=== PATIENT | female | born 1965 | race African-American/Black ===

== ENCOUNTER 2019-01-16 03:59 | Observation (INO) ==
[2019-01-16] MEDS ORDERED: METHYLPREDNISOLONE SOD SUCC/PF 125 MG/2 ML VIAL IV ONE (04:05)
[2019-01-16] MEDS ORDERED: ACETAMINOPHEN 500 MG TABLET PO ONE (04:18)
--- NOTE | 2019-01-16 04:23 | ERNOTE ---
Dyspnea - Date Date of Service: 01/16/19 - General Presenting Symptoms: shortness of breath, difficulty of breathing, wheezing Time Seen by Provider: 01/16/19 04:03 Source: patient, EMS Exam Limitations: no limitations - Immun/Allergies/Home Medications Immunizations: IMMUNIZATION HX Immunizations Up to Date Yes History of Influenza Vaccine Yes Hx Pneumococcal Vaccination No Allergies/Adverse Reactions: Allergies No Known Allergies Allergy (Verified 12/13/18 09:18) Home Medications: HOME MEDICATIONS amlodipine 10 mg tablet 10 mg PO DAILY 11/09/18 [Last Taken Unknown] aspirin 81 mg tablet,delayed release 81 mg PO DAILY 11/09/18 [Last Taken Unknown] atorvastatin 80 mg tablet 80 mg PO DAILY 11/09/18 [Last Taken Unknown] hydralazine 50 mg tablet 50 mg PO TID 11/09/18 [Last Taken Unknown] lisinopril 20 mg tablet 20 mg PO DAILY 11/09/18 [Last Taken Unknown] metoprolol succinate ER 50 mg tablet,extended release 24 hr 50 mg PO DAILY 11/09/18 [Last Taken Unknown] Baclofen 10 mg PO QID 12/13/18 [Last Taken Unknown] Cephalexin Monohydrate [Keflex] 500 mg PO QID #40 cap 12/13/18 [Last Taken Unknown] traMADol HCL [Ultram] 50 mg PO QID PRN #20 tab 12/13/18 [Last Taken Unknown] - History of Present Illness Narrative: patient presents per ems with c/o dyspnea, has been sick for last several days with fever and cough, hx of copd Severity: severe Treatment [employer] RO[employer]: paramedics, oxygen, albuterol, other - solumedrol Initiating event: Reports: upper resp illness Frequency of episodes: Reports: frequent episodes Modifying Factors - (Improves): Reports: albuterol, oxygen, other - bipap Modifying Factors (Worsens): Reports: nothing Associated Symptoms-Dyspnea: Reports: fever/chills, cough, wheezing, lightheadedness Prior Treatment: Reports: recently seen, treated by physician, previous episodes Review of Systems - Review of Systems Constitutional: Present: See HPI EYE: Present: no symptoms reported ENT: Present: no symptoms reported Respiratory: Present: See HPI, shortness of breath, orthopnea, wheezing Cardiology: Present: no symptoms reported Gastrointestinal/Abdominal: Present: no symptoms reported Genitourinary: Present: no symptoms reported Musculoskeletal: Present: no symptoms reported Skin: Present: no symptoms reported Neurological: Present: other - previous cva with right sided paralysis Endocrine: Present: no symptoms reported Hematologic/Lymphatic: Present: no symptoms reported Psych: Present: no symptoms reported All Other Systems: All systems neg except as marked Medical History (Last Reviewed 01/16/19 @ 04:01 by Tara Driver RN) Hyperlipidemia (Chronic) COPD (chronic obstructive pulmonary disease) (Chronic) 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 Smoking Status Never smoker Have you smoked in the past 12 No months Do you dip or chew tobacco No Alcohol Use none Drug Use none No Social History Section defined Physical Exam - Physical Exam General Appearance: Present: severe distress, anxious, obese Head Exam: Present: normal inspection, no evidence of injury Eye Exam: Normal inspection: bilateral, PERRL: bilateral, EOMI: bilateral Ears, Nose, Throat: Present: normal ENT inspection, normal pharynx Neck: Present: normal inspection, nontender Respiratory: Present: respiratory distress Cardiovascular/Chest: Present: regular rate, rhythm, no murmur, normal peripheral pulses Gastrointestinal/Abdominal: Present: normal bowel sounds, nontender, nondistended, soft, no organomegaly Back Exam: Present: normal inspection, normal range of motion, no CVA tenderness, no vertebral tenderness Extremity Exam: Present: normal except - - right sided paralysis Neurological Exam: Present: alert, oriented, normal mood/affect, no motor/sensory deficits Skin Exam: Present: normal color, warm/dry Lymphatic Exam: Present: no adenopathy Progress - Date and Time Seen: Date and Time: 01/16/19 06:02 patient improved discussed case with dr kerry klein accepts patient for admission - Results and Orders Patient's Lab Results:: I have reviewed the patient's lab results. - Vital Signs Patient's Vital Signs:: I have reviewed the patient's vital signs. Vital Signs: Vital Signs 01/16/19 04:03 01/16/19 04:12 Temperature 36.6 C Pulse Rate 113 H 106 H Respiratory Rate 32 H Blood Pressure 181/119 H O2 Sat by Pulse Oximetry 99 - EKG EKG #1 EKG: supraventricular tachycardia - X-Ray X-Ray #1 X-Ray: chest Interpretation: Interp. by ca - copd - Progress/Reassessment Chief Complaint: Dyspnea Progress:: Improved - Transfer of Care Expected Disposition: Admit Plan - Plan Plan: to admit to hospital Departure Clinical Impression: COPD (chronic obstructive pulmonary disease) - Departure Disposition: Still a patient Condition: Serious
[2019-01-16] MEDS ORDERED: hydrALAZINE HCL 20 MG/ML VIAL IV ONE (04:30)
[2019-01-16 04:32] LABS: Hematocrit 42.3 % (37.0-47.0); Hemoglobin 12.7 gm/dL (12.5-16.0); Mean Cell Volume 71.7 fl (78-100); Mean Corpuscular Hemoglobin 21.5 pg (27-31); Neutrophil # 5.2 K/mm3 (1.3-6.0); Neutrophil % 73.5 % (42-75.0); Platelet Count 139 K/mm3 (150-450); Red Cell Distribution Width 23.3 % (11.5-14.0); White Blood Count 7.1 K/mm3 (4.0-10.5)
[2019-01-16 04:55] LABS: ALT 20 U/L (19-67); AST 23 U/L (0-48); Albumin * 3.5 gm/dl (3.4-5.0); Alkaline Phosphatase * 96 U/L (50-170); Anion Gap 13.2 mmol/L (6.8-13.8); BNP * 149 pg/mL (5-205); BUN/Creatinine Ratio 14.6 (9.0-21.6); Bilirubin, Total 0.3 mg/dL (0.0-1.1); Blood Urea Nitrogen 13 mg/dL (3-23); Ca. Corrected For Albumin 8.9 mg/dL (8.4-10.2); Calcium * 8.8 mg/dL (7.9-10.9); Carbon Dioxide 26.2 mmol/L (24-32.6); Chloride 105 mmol/L (97-106); Glucose * 101 mg/dL (70-110); Potassium 3.4 mmol/L (3.4-4.6); Sodium 141 mmol/L (132-142); Total Protein 8.1 gm/dL (6.2-8.2); Troponin I Less than 0.017 ng/mL (0.00-0.10)
[2019-01-16] MEDS ORDERED: ALBUTEROL SULFATE/IPRATROPIUM 3 ML NEBU IH ONE ×2 (05:40)
[2019-01-16] MEDS ORDERED: LORazepam 2 MG/ML DISP.SYRIN IV ONE (05:40)
[2019-01-16] MEDS ORDERED: LORazepam 2 MG/ML DISP.SYRIN ONE (05:41)
[2019-01-16] MEDS ORDERED: ALBUTEROL SULFATE 2.5 MG/0.5 ML VIAL.NEB IH PRN (06:11)
[2019-01-16] MEDS ORDERED: METHYLPREDNISOLONE SOD SUCC/PF 125 MG/2 ML VIAL IV SCH (06:15)
[2019-01-16] MEDS ORDERED: ALBUTEROL SULFATE 60 PUFF INHALER IH PRN (08:52)
[2019-01-16] MEDS: BACLOFEN 10 MG TABLET PO SCH ×3 (10:00→16:52)
[2019-01-16] MEDS: ASPIRIN 81 MG TABLET.DR PO SCH (10:00)
[2019-01-16] MEDS: LISINOPRIL 20 MG TABLET PO SCH (10:00)
[2019-01-16] MEDS: METOPROLOL SUCCINATE 50 MG TABLET.SA PO SCH (10:02)
[2019-01-16] MEDS: hydrALAZINE HCL 50 MG TABLET PO SCH ×3 (10:02→16:52)
[2019-01-16] MEDS: amLODIPine BESYLATE 10 MG TABLET PO SCH (10:02)
[2019-01-16] MEDS: METHYLPREDNISOLONE SOD SUCC/PF 125 MG/2 ML VIAL IV SCH ×3 (10:03→21:21)
[2019-01-16] MEDS ORDERED: ALBUTEROL SULFATE 2.5 MG/0.5 ML VIAL.NEB IH SCH (12:15)
[2019-01-16] MEDS ORDERED: BUDESONIDE 0.5 MG/2 ML VIAL.NEB IH SCH (12:15)
--- NOTE | 2019-01-16 12:23 | HP ---
Chief Complaint - Chief Complaint Date of Service: 01/16/19 Time of Service: 08:30 Chief Complaint: dyspnea, asthma attack History of Present Illness: Kate House is a 51-year-old black female who presented to ER with marked shortness of breath. She has a history of asthma. She does not smoke but she lives with her son and his . Smoked heavily. She has a nebulizer but doesn't know where it is and doesn't have any medication for it. She is very dyspneic and tachypnea With audible wheezing on arrival in ER. She was treated there and improved some and is admitted for further treatment. She appears weak. Her her voice is weak. She is unable to complete a sentence without having to take a breath for 2. Also, she has had a previous stroke and has a partial hemiparesis. 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 Hypertension (Chronic) Onset Date: Unknown Stroke (Chronic) Onset Date: ~2014 History of echocardiogram Onset Date: ~07/2017 EF 60% Surgical History: Surgical History (Last Reviewed 01/16/19 @ 07:45 by Lakesha Augustin RN) History of gastrostomy tube placement Onset Date: ~2014 placed after her stroke removed in 06/2016 Family History: Family History (Last Reviewed 01/16/19 @ 07:45 by Lakesha Augustin RN) Other Family history non-contributory Social History: Patient Lives/Resources Home Utilized Occupation retired Preferred Language [place] Citizen Do you have any holiness or Yes: Restoration cultural preference? Smoking Status Never smoker Have you smoked in the past 12 No months Do you dip or chew tobacco No Alcohol Use none Drug Use none No Social History Section defined Review Of Systems (GEN) - Review of Systems Generalized/Overall Review: Present: Weakness. Absent: Chills, Fever EENTM: Present: No Symptoms Reported Respiratory: Present: Shortness of Breath, Wheezing Cardiac: Present: No Symptoms Reported Abdominal: Present: No Symptoms Reported Genitourinary: Present: No Symptoms Reported Musculoskeletal: Present: No Symptoms Reported Neurological: Present: Pre-existing Deficit - Due to previous stroke Skin: Present: No Symptoms Reported Endocrine: Present: No Symptoms Reported Misc: All systems neg except as marked Immunizations: IMMUNIZATION HX Immunizations Up to Date Yes History of Influenza Vaccine Yes Hx Pneumococcal Vaccination No Allergies/Adverse Reactions: Allergies Allergy/AdvReac Type Severity Reaction Status Date / Time No Known Allergies Allergy Verified 01/16/19 07:45 Home Medications: HOME MEDICATIONS amlodipine 10 mg tablet 10 mg PO DAILY 11/09/18 [Last Taken Unknown] aspirin 81 mg tablet,delayed release 81 mg PO DAILY 11/09/18 [Last Taken Unknown] atorvastatin 80 mg tablet 80 mg PO DAILY 11/09/18 [Last Taken Unknown] hydralazine 50 mg tablet 50 mg PO TID 11/09/18 [Last Taken Unknown] lisinopril 20 mg tablet 20 mg PO DAILY 11/09/18 [Last Taken Unknown] metoprolol succinate ER 50 mg tablet,extended release 24 hr 50 mg PO DAILY 11/09/18 [Last Taken Unknown] Baclofen 10 mg PO TID 12/13/18 [Last Taken Unknown] Albuterol Sulfate [Ventolin Hfa] 18 gm INHALATION QID PRN 01/16/19 [Last Taken Unknown] Exam - Exam Vital Signs: Vital Signs - Last Taken Temp 36.4 C 01/16/19 10:00 Pulse 110 H 01/16/19 10:22 Resp 24 H 01/16/19 10:22 BP 152/101 H 01/16/19 10:02 Pulse Ox 100 01/16/19 10:13 Constitutional: Present: Alert, Oriented x3, Cooperative, Well developed, Well nourished, Moderate distress ENT Exam: Present: normal ENT inspection, hearing grossly normal, pharynx normal, TMs normal Eye Exam: bilateral eye: normal inspection, PERRL, EOMI Neck: Present: non-tender, full range of motion, supple, normal inspection, trachea midline Back Exam: Present: normal inspection, no CVA tenderness, no vertebral tenderness Breasts: Present: Exam deferred, Nontender Respiratory: Present: chest non-tender, wheezing Cardiovascular/Chest: Present: normal peripheral pulses, no chest tenderness, no edema, no gallop, no JVD, no murmur, no rub, tachycardia Peripheral Pulses: carotid (R): 2+, carotid (L): 2+, radial (R): 2+, radial (L): 2+ Abdomen: Present: Normal bowel sounds, soft, nontender, nondistended, no rebound tenderness, no hepatospenomegaly, no masses /Rectal: Present: Exam deferred Extremity: Present: normal range of motion, non-tender, normal inspection, no pedal edema, no calf tenderness, normal capillary refill Skin Exam: Present: normal color, warm/dry, no cyanosis, cool/dry, diaphoresis Lymphatic: Present: no adenopathy Neurologic: Present: resp therapist II-XII nml as tested, normal cerebellar test, abnormal gait, motor weakness - R. side. Absent: sensory deficit, depressed affect, disoriented x 3 Appearance: Present: appropriate appearance, appropriate insight, neat, no memory impairment Eye contact: Present: cooperative, good eye contact, normal speech Thoughts: Present: normal thought pattern, no apparent hallucination Diagnostic Studies: Abnormal Lab Results 01/16/19 01/16/19 Range/Units 04:03 04:25 RBC 5.90 H (4.2-5.4) M/mm3 MCV 71.7 L (78-100) fl MCH 21.5 L (27-31) pg MCHC 30.0 L (32-36) g/dl RDW 23.3 H (11.5-14.0) % Plt Count 139 L (150-450) K/mm3 Lymphocytes % 19.2 L (20-51) % Lymphocytes # 1.37 L (1.5-3.5) k/mm3 pO2 137.6 H (83.0-108.0) mmHg Total CO2 24.1 H (19.0-24.0) mmol/L ABG O2 Sat (Measured) 98.7 H (94.0-98.0) % Laboratory Results WBC 7.1 K/mm3 (4.0-10.5) 01/16/19 04:25 RBC 5.90 M/mm3 (4.2-5.4) H 01/16/19 04:25 Hgb 12.7 gm/dL (12.5-16.0) 01/16/19 04:25 Hct 42.3 % (37.0-47.0) 01/16/19 04:25 MCV 71.7 fl (78-100) L 01/16/19 04:25 MCH 21.5 pg (27-31) L 01/16/19 04:25 MCHC 30.0 g/dl (32-36) L 01/16/19 04:25 RDW 23.3 % (11.5-14.0) H 01/16/19 04:25 Plt Count 139 K/mm3 (150-450) L 01/16/19 04:25 Immature Gran % (Auto) 0.30 % (0.001-0.429) 01/16/19 04:25 Immature Gran # (Auto) 0.02 K/mm3 (0.000-0.0310) 01/16/19 04:25 Neutrophils % 73.5 % (42-75.0) 01/16/19 04:25 Lymphocytes % 19.2 % (20-51) L 01/16/19 04:25 Monocytes % 4.4 % (0.0-9) 01/16/19 04:25 Eosinophils % 2.0 % (0.0-3.0) 01/16/19 04:25 Basophils % 0.6 % (0.0-1.0) 01/16/19 04:25 Nucleated RBC % 0.0 k/mm3 (0-1) 01/16/19 04:25 Neutrophils # 5.2 K/mm3 (1.3-6.0) 01/16/19 04:25 Lymphocytes # 1.37 k/mm3 (1.5-3.5) L 01/16/19 04:25 Monocytes # 0.3 k/mm3 (0.0-1.0) 01/16/19 04:25 Eosinophils # 0.1 k/mm3 (0.0-0.7) 01/16/19 04:25 Absolute Basophils 0.0 k/mm3 (0.0-0.1) 01/16/19 04:25 pCO2 38.0 mmHg (32.0-45.0) 01/16/19 04:03 pO2 137.6 mmHg (83.0-108.0) H 01/16/19 04:03 HCO3 22.9 mmol/L (21.0-28.0) 01/16/19 04:03 Total CO2 24.1 mmol/L (19.0-24.0) H 01/16/19 04:03 Base Excess -1.6 mmol/L (-2.0-3.0) 01/16/19 04:03 ABG pH 7.40 (7.35-7.45) 01/16/19 04:03 ABG O2 Sat (Measured) 98.7 % (94.0-98.0) H 01/16/19 04:03 Sodium 141 mmol/L (132-142) 01/16/19 04:25 Plasma Sodium 141 mmol/L (130-142) 01/16/19 04:25 Potassium 3.4 mmol/L (3.4-4.6) 01/16/19 04:25 Chloride 105 mmol/L (97-106) 01/16/19 04:25 Carbon Dioxide 26.2 mmol/L (24-32.6) 01/16/19 04:25 Anion Gap 13.2 mmol/L (6.8-13.8) 01/16/19 04:25 BUN 13 mg/dL (3-23) 01/16/19 04:25 Creatinine 0.89 mg/dL (0.4-1.4) 01/16/19 04:25 Est GFR (Non-Af Amer) 85 mL/min (60-130) 01/16/19 04:25 BUN/Creatinine Ratio 14.6 (9.0-21.6) 01/16/19 04:25 Random Glucose 101 mg/dL (70-110) 01/16/19 04:25 Calcium 8.8 mg/dL (7.9-10.9) 01/16/19 04:25 Calcium Adj for Albumin 8.9 mg/dL (8.4-10.2) 01/16/19 04:25 Total Bilirubin 0.3 mg/dL (0.0-1.1) 01/16/19 04:25 AST 23 U/L (0-48) 01/16/19 04:25 ALT 20 U/L (19-67) 01/16/19 04:25 Alkaline Phosphatase 96 U/L (50-170) 01/16/19 04:25 Troponin I Less than 0.017 ng/mL (0.00-0.10) 01/16/19 04:25 B-Natriuretic Peptide 149 pg/mL (5-205) 01/16/19 04:25 Total Protein 8.1 gm/dL (6.2-8.2) 01/16/19 04:25 Albumin 3.5 gm/dl (3.4-5.0) 01/16/19 04:25 Assessment/Plan - Narrative Narrative: 1. Increase respiratory therapy treatments to every 4 hours with albuterol and had Pulmicort to 2 treatments a day. 2. Evaluate for infectious etiology. 3. Up in chair for all meals. - Assessment/Plan (1) Asthma Problem: Acute Qualifiers: Asthma severity: severe Asthma persistence: persistent Asthma complication type: with acute exacerbation Qualified Code(s): J45.51 - Severe persistent asthma with (acute) exacerbation (2) COPD (chronic obstructive pulmonary disease) Problem: Chronic Qualifiers: COPD type: chronic bronchitis Chronic bronchitis type: simple Qualified Code(s): J41.0 - Simple chronic bronchitis (3) Paralysis due to acute cerebrovascular accident (CVA) Problem: Chronic (4) Hypertension Problem: Chronic Qualifiers: Hypertension type: essential hypertension Qualified Code(s): I10 - Essential (primary) hypertension
[2019-01-16] MEDS: ALBUTEROL SULFATE 2.5 MG/0.5 ML VIAL.NEB IH SCH ×3 (14:04→22:26)
[2019-01-16] MEDS: BUDESONIDE 0.5 MG/2 ML VIAL.NEB IH SCH (18:02)
[2019-01-16] MEDS: ROSUVASTATIN CALCIUM 20 MG TABLET PO SCH (21:18)
[2019-01-17] MEDS: ALBUTEROL SULFATE 2.5 MG/0.5 ML VIAL.NEB IH SCH ×6 (02:02→22:18)
[2019-01-17] MEDS: METHYLPREDNISOLONE SOD SUCC/PF 125 MG/2 ML VIAL IV SCH ×3 (04:15→17:21)
[2019-01-17] MEDS: BUDESONIDE 0.5 MG/2 ML VIAL.NEB IH SCH ×2 (06:06→19:46)
[2019-01-17] MEDS: METOPROLOL SUCCINATE 50 MG TABLET.SA PO SCH (09:01)
[2019-01-17] MEDS: LISINOPRIL 20 MG TABLET PO SCH (09:01)
[2019-01-17] MEDS: BACLOFEN 10 MG TABLET PO SCH ×3 (09:01→17:22)
[2019-01-17] MEDS: ASPIRIN 81 MG TABLET.DR PO SCH (09:01)
[2019-01-17] MEDS: hydrALAZINE HCL 50 MG TABLET PO SCH ×3 (09:02→17:22)
[2019-01-17] MEDS: amLODIPine BESYLATE 10 MG TABLET PO SCH (09:02)
[2019-01-17 09:08] LABS: Iron 56 mcg/dL (35-120); Transferrin Sat. (% Sat.) 27 % (15-55)
[2019-01-17] MEDS: ALBUTEROL SULFATE 2.5 MG/0.5 ML VIAL.NEB IH PRN ×2 (13:37→17:22)
--- NOTE | 2019-01-17 13:42 | DS ---
(1) Asthma Problem: Acute Qualifiers: Asthma severity: moderate Asthma persistence: persistent Asthma complication type: with acute exacerbation Qualified Code(s): J45.41 - Moderate persistent asthma with (acute) exacerbation (2) COPD (chronic obstructive pulmonary disease) Problem: Chronic Qualifiers: COPD type: chronic bronchitis Chronic bronchitis type: simple Qualified Code(s): J41.0 - Simple chronic bronchitis (3) Paralysis due to acute cerebrovascular accident (CVA) Problem: Chronic (4) Hypertension Problem: Chronic Qualifiers: Hypertension type: essential hypertension Qualified Code(s): I10 - Essential (primary) hypertension Description of Stay: Kate House is a 53-year-old black female who presented with severe asthma attack in the ER. He treated her with respiratory therapy and she improved some but when I saw her initially on the general medical unit she was still very tight and laboring. We gave her albuterol breathing treatments every 4 hours and antibiotics. I'll also put Pulmicort for an ICS in her breathing treatment solution twice daily. Today she still has some expiratory wheezes but she does not have any labored breathing. She is able to speak in full sentences. She feels that she is pretty much back to her baseline. She has had a previous stroke which is caused a hemiparesis of the right side. Her speech is good so it did not affect [place]'s area. She will need and requests to have home health. Indeed she could use a lot of assistance with physical therapy and occupational therapy for stroke rehabilitation. She will also need equipment and medication for inhalation treatments. She is requesting a referral to an irradiated fuel handler for an eye exam and refraction for bifocals. [id number] for home health:Kate House is a 53-year-old black female who is confined to home due to previous left hemispheric stroke that has caused a subtotal right hemiparesis. She is naturally right-handed but has adapted well from the stroke. She also has moderate to severe asthma that will require monitoring and medication management. The need for jail will be for medication education and management, diagnosis management education. The need for physical therapy will be for stroke rehabilitation and improve mobilization. She will also need assistance with bathing and and dressing. The need for occupational therapy will be for splinting of the right hand, improve range of motion and stroke rehabilitation. She will need strengthening and improved mobility. She will also need instruction on safety awareness. The need for speech therapy would be for improved swallowing and eating techniques. Procedures Performed: none Results and Findings: Pending Mircobiology Results 01/16/19 05:00 Blood Blood Culture - Preliminary NO GROWTH 24 HOURS 01/16/19 04:25 Blood Blood Culture - Preliminary NO GROWTH 24 HOURS Lab Pending Results 01/16/19 04:03: pCO2 38.0, pO2 137.6 H, HCO3 22.9, Total CO2 24.1 H, Base Excess -1.6, ABG pH 7.40, ABG O2 Sat (Measured) 98.7 H 01/16/19 04:25: WBC 7.1, RBC 5.90 H, Hgb 12.7, Hct 42.3, MCV 71.7 L, MCH 21.5 L, MCHC 30.0 L, RDW 23.3 H, Plt Count 139 L, Immature Gran % (Auto) 0.30, Immature Gran # (Auto) 0.02, Neutrophils % 73.5, Lymphocytes % 19.2 L, Monocytes % 4.4, Eosinophils % 2.0, Basophils % 0.6, Nucleated RBC % 0.0, Neutrophils # 5.2, Lymphocytes # 1.37 L, Monocytes # 0.3, Eosinophils # 0.1, Absolute Basophils 0.0 01/16/19 04:25: Sodium 141, Plasma Sodium 141, Potassium 3.4, Chloride 105, Carbon Dioxide 26.2, Anion Gap 13.2, BUN 13, Creatinine 0.89, Est GFR (Non-Af Amer) 85, BUN/Creatinine Ratio 14.6, Random Glucose 101, Calcium 8.8, Calcium Adj for Albumin 8.9, Total Bilirubin 0.3, AST 23, ALT 20, Alkaline Phosphatase 96, Troponin I Less than 0.017, B-Natriuretic Peptide 149, Total Protein 8.1, Albumin 3.5 01/17/19 08:37: Absolute Retic 0.0694, Percent Retic 1.2, Immature Retic Fraction 12.7, Retic Hgb Content 26.1 L 01/17/19 08:37: Iron 56, TIBC 207 L, Transferrin % Sat 27 01/17/19 08:37: Ferritin 118 Discharge Location: Home Disposition: [facility] Home Health Agency: [facility] Home Health Condition: Fair Face to Face Encounter completed per CMS Guidelines: Yes Discharge Activity: Activity as tolerated Discharge Diet: General/regular food Referrals: Bridger Taylor MD [Staff Physician] - Additional Patient Instructions (free text): -Please make TCM appointment unless intermediate discharge. Thank you! Jazmyne @ ext:[phone]. Having [facility] Home Health new at discharge, please call and fax discharge orders to them. Complete Home Medications List: Complete Home Medication List: amlodipine 10 mg tablet 10 mg PO DAILY 11/09/18 aspirin 81 mg tablet,delayed release 81 mg PO DAILY 11/09/18 atorvastatin 80 mg tablet 80 mg PO DAILY 11/09/18 hydralazine 50 mg tablet 50 mg PO TID 11/09/18 lisinopril 20 mg tablet 20 mg PO DAILY 11/09/18 metoprolol succinate ER 50 mg tablet,extended release 24 hr 50 mg PO DAILY 11/09/18 Baclofen 10 mg PO TID 12/13/18 Albuterol Sulfate [Ventolin Hfa] 18 gm INHALATION QID PRN 01/16/19 Albuterol Sulfate [Albuterol Sulfate 2.5 MG/0.5ML] 2.5 mg IH Q6H #100 [email or web address] 01/17/19 Albuterol Sulfate [Ventolin HFA] 18 gm INHALATION Q4H #1 inhaler 01/17/19 Budesonide [Pulmicort Respules] 0.5 mg IH BIDRT #60 vial.[email or web address] 01/17/19 Cefuroxime Axetil [Ceftin] 500 mg PO BID #20 tab 01/17/19
[2019-01-17] MEDS ORDERED: CEFUROXIME AXETIL 250 MG TABLET ONE (21:35)
[2019-01-17] MEDS: CEFUROXIME AXETIL 500 MG TABLET PO SCH (22:08)
[2019-01-17] MEDS: ROSUVASTATIN CALCIUM 20 MG TABLET PO SCH (22:08)
[2019-01-18] MEDS: ALBUTEROL SULFATE 2.5 MG/0.5 ML VIAL.NEB IH SCH ×3 (02:12→10:37)
[2019-01-18] MEDS: BUDESONIDE 0.5 MG/2 ML VIAL.NEB IH SCH (06:05)
[2019-01-18] MEDS: CEFUROXIME AXETIL 500 MG TABLET PO SCH (08:25)
[2019-01-18] MEDS: amLODIPine BESYLATE 10 MG TABLET PO SCH (08:26)
[2019-01-18] MEDS: ASPIRIN 81 MG TABLET.DR PO SCH (08:26)
[2019-01-18] MEDS: METOPROLOL SUCCINATE 50 MG TABLET.SA PO SCH (08:27)
[2019-01-18] MEDS: LISINOPRIL 20 MG TABLET PO SCH (08:29)
[2019-01-18] MEDS: BACLOFEN 10 MG TABLET PO SCH (08:29)
[2019-01-18] MEDS: hydrALAZINE HCL 50 MG TABLET PO SCH (08:29)
[2019-01-18] MEDS: ALBUTEROL SULFATE 2.5 MG/0.5 ML VIAL.NEB IH PRN (10:37)
[2019-01-18 13:46] VITALS: BP 133/76
== END 2019-01-18 15:15 | disposition home health service (06) ==
LOC: ER 03:59 → MS 06:01 → INTOOBSV 06:01 → MS 06:10
PROVIDERS: ADMIT Family Medicine; ATTEND Family Medicine
CPT/HCPCS: 36415; 36600; 71010; 71045; 80053; 82728; 82803; 83020; 83021; 83519; 83540; 83550; 83880; 84484; 85025; 85045; 87040; 93005; 94640; 94660; 94664; 94760; 96365; 96366; 96375; 97110; 97162; 97166; 97530; 97760; 99285; G0378

== ENCOUNTER 2020-02-12 00:01 | Observation (INO) ==
--- NOTE | 2020-02-12 00:28 | ERNOTE ---
Chest Pain/Cardiac HPI Time Seen by Provider: 02/12/20 00:19 Source: patient, EMS Exam Limitations: physical impairment - Patient has some dysarthria due to previous CVA Immunizations: IMMUNIZATION HX Immunizations Up to Date Yes History of Influenza Vaccine No Hx Pneumococcal Vaccination No Allergies/Adverse Reactions: Allergies No Known Allergies Allergy (Verified 02/12/20 04:30) Home Medications: HOME MEDICATIONS aspirin 81 mg tablet,delayed release 81 mg PO DAILY 11/09/18 [Last Taken Unknown] Albuterol Sulfate [Albuterol Sulfate 2.5 MG/0.5ML] 2.5 mg INHALATION Q6H #100 vial.neb 01/17/19 [Last Taken Unknown] Durable Medical Equipment See Dose Instructions .ROUTE .MEDSUPPLY #1 ea 01/24/19 [Last Taken Unknown] Durable Medical Equipment See Dose Instructions .ROUTE .MEDSUPPLY #1 ea 01/24/19 [Last Taken Unknown] diaper,brief,adult,disposable See Dose Instructions .ROUTE .MEDSUPPLY #40 ea 01/24/19 [Last Taken Unknown] electric hospital bed 0 .ROUTE .MEDSUPPLY #1 ea 01/24/19 [Last Taken Unknown] ferrous sulfate 325 mg (65 mg iron) tablet 325 mg PO DAILY #100 tab 02/28/19 [Last Taken Unknown] Nebulizer 0 .ROUTE .MEDSUPPLY #1 ea 03/30/19 [Last Taken Unknown] Acetaminophen [Tylenol] 650 mg PO Q6H PRN 08/03/19 [Last Taken Unknown] Ipratropium [place] [Atrovent] 1.25 ml INHALATION Q6H PRN 08/03/19 [Last Taken Unknown] Polyethylene Glycol 3350 [Miralax] 17 gm PO DAILY PRN 08/03/19 [Last Taken Unknown] prazosin 5 mg capsule 5 mg PO DAILY #90 cap 10/05/19 [Last Taken Unknown] albuterol sulfate 90 mcg/actuation aerosol inhaler See Rx Instructions .ROUTE .COMPLEX #18 gram 11/24/19 [Last Taken Unknown] amlodipine 10 mg tablet See Rx Instructions .ROUTE .COMPLEX #30 tablet 11/24/19 [Last Taken Unknown] baclofen 10 mg tablet See Rx Instructions .ROUTE .COMPLEX #90 tablet 11/24/19 [Last Taken Unknown] hydralazine 50 mg tablet 50 mg PO TID #90 tab 11/24/19 [Last Taken Unknown] ipratropium 0.5 mg-albuterol 3 mg (2.5 mg base)/3 mL nebulization soln 3 ml INHALATION .COMPLEX #150 ml 11/24/19 [Last Taken Unknown] lisinopril 40 mg tablet See Rx Instructions .ROUTE .COMPLEX #30 tablet 11/24/19 [Last Taken Unknown] metoprolol succinate 100 mg tablet,extended release 24 hr See Rx Instructions .ROUTE .COMPLEX #30 tablet 11/24/19 [Last Taken Unknown] atorvastatin 80 mg tablet 80 mg PO DAILY #30 tab 01/09/20 [Last Taken Unknown] Durable Medical Equipment See Dose Instructions .ROUTE .MEDSUPPLY #1 ea 01/12/20 [Last Taken Unknown] gabapentin 100 mg capsule 100 mg PO TID #90 cap 01/12/20 [Last Taken Unknown] meclizine 25 mg tablet 25 mg PO TID PRN #30 tab 01/12/20 [Last Taken Unknown] Narrative: Patient presents to the ER per EMS with approximately 1 hour history of chest pressure with squeezing pain in her right arm and shoulder and some squeezing pain in the right side of her face. She has a cough and some shortness of breath but states it is pretty normal for her and her diagnosis of COPD Timing: constant Severity/Quality: moderate, other - Squeezing Chest Pain Radiation: no radiation Activities at Onset: none Modifying Factors - Improves: Present: nothing Nitro Today/Relief: no nitro taken today Aspirin Treatment Today: no aspirin today Prior Chest Pain/Cardiac Workup: Reports: prior chest pain Review of Systems - Review of Systems Constitutional: Absent: recent illness, fever, chills ENT: Absent: nose congestion, nasal drainage Respiratory: Present: See HPI, shortness of breath, cough - she states it is just because of her COPD. Cardiology: Present: See HPI, chest pain Gastrointestinal/Abdominal: Absent: nausea, vomiting Skin: Absent: rash Neurological: Absent: headache Endocrine: Absent: excessive sweating Medical History (Last Reviewed 02/12/20 @ 03:27 by Mark Palacio DO) Dizziness (Chronic) Hemiparesis affecting right side as late effect of cerebrovascular accident (Chronic) Impacted cerumen of both ears (Chronic) Acute loss of vision (Acute) Hyperlipidemia (Chronic) COPD (chronic obstructive pulmonary disease) (Chronic) Paralysis due to acute cerebrovascular accident (CVA) (Chronic) Onset Date: ~2014 right side Hypertension (Chronic) Onset Date: Unknown Stroke (Chronic) Onset Date: ~2014 History of echocardiogram Onset Date: ~07/2017 EF 60% Surgical History: Surgical History (Last Reviewed 02/12/20 @ 03:27 by Mark Palacio DO) History of gastrostomy tube placement Onset Date: ~2014 placed after her stroke removed in 06/2016 Family History: Family History (Last Reviewed 02/12/20 @ 03:27 by Mark Palacio DO) Other Family history non-contributory Social History: (Last Reviewed 02/12/20 @ 03:27 by Mark Palacio DO) Tobacco: Smoking Status: Never smoker Alcohol: alcohol intake: never Substance Use: substance use type: does not use Physical Exam - Physical Exam General Appearance: Present: wd/wn, alert, no apparent distress Head Exam: Present: no evidence of injury Respiratory: Present: no respiratory distress, rales, wheezing Cardiovascular/Chest: Present: regular rate, rhythm Gastrointestinal/Abdominal: Present: normal bowel sounds Extremity Exam: Present: other - Right upper extremity held in flexion and adduction, hand flexed as welldue to previous CVA Neurological Exam: Present: alert, oriented, motor weakness - and flexion spasticity of right arm Skin Exam: Present: normal color, warm/dry Progress - Results and Orders Patient's Lab Results:: I have reviewed the patient's lab results. Results and Orders: Laboratory Tests 02/12/20 02/12/20 00:40 00:40 WBC 4.3 Hgb 11.8 L Hct 40.1 Plt Count 132 L Sodium 143 H Potassium 3.8 Chloride 105 BUN 12 D Creatinine 0.90 Random Glucose 85 Calcium 8.6 Total Bilirubin 0.3 AST 17 ALT 11 L Troponin I 0.020 - Vital Signs Patient's Vital Signs:: I have reviewed the patient's vital signs. - EKG EKG #1 EKG: NSR, nonspecific ST T wave changes - non specific intraventricular conduction delay, old AR. nothing acute EKG read: Interp. by me - X-Ray X-Ray #1 X-Ray: chest Interpretation: Interp. by me X-ray Comments: No infiltrate or effusion. No pneumothorax. Cardiac silhouette appears normal. - Progress/Reassessment Progress:: Improved Progress Note-Subjective: 02/12/20 03:[address] Pinto she agreed with observation admission for rule out AR. We discussed COVID-19 testing due to the fact that the patient does have cough and shortness of breath. We felt that COVID-19 testing would be appropriate in this patient. 02/12/20 03:37 I spoke with Yisel Quiroga infection control nurse she agrees with swabbing patient for COVID-19. 02/12/20 03:59 I discussed the plan of care with the patient and she expressed agreement and understanding Departure Clinical Impression: Chest pain, rule out acute myocardial infarction, Person under investigation for COVID-19 COPD (chronic obstructive pulmonary disease) Qualifiers: COPD type: unspecified COPD Qualified Code(s): J44.9 - Chronic obstructive pulmonary disease, unspecified - Departure Disposition: Still a patient Condition: Stable
[2020-02-12 00:51] LABS: Hematocrit 40.1 % (37.0-47.0); Hemoglobin 11.8 gm/dL (12.5-16.0); Mean Cell Volume 71.2 fl (78-100); Mean Corpuscular Hgb Conc 29.4 g/dl (32-36); Neutrophil # 2.1 K/mm3 (1.3-6.0); Neutrophil % 48.9 % (42-75.0); Platelet Count 132 K/mm3 (150-450); Red Blood Count 5.63 M/mm3 (4.2-5.4); Red Cell Distribution Width 24.7 % (11.5-14.0); White Blood Count 4.3 K/mm3 (4.0-10.5)
[2020-02-12 01:03] LABS: Albumin * 3.3 gm/dl (3.4-5.0); Anion Gap 12.8 mmol/L (6.8-13.8); BUN/Creatinine Ratio 13.3 (9.0-21.6); Bilirubin, Total 0.3 mg/dL (0.0-1.1); Ca. Corrected For Albumin 8.8 mg/dL (8.4-10.2); Calcium * 8.6 mg/dL (7.9-10.9); Potassium 3.8 mmol/L (3.4-4.6); Troponin I 0.02 ng/mL (0.00-0.10)
[2020-02-12] MEDS ORDERED: ALBUTEROL SULFATE 60 PUFF INHALER IH PRN (02:23)
[2020-02-12] MEDS ORDERED: ALBUTEROL SULFATE/IPRATROPIUM 3 ML NEBU IH PRN (09:32)
[2020-02-12] MEDS ORDERED: ALBUTEROL SULFATE/IPRATROPIUM 3 ML NEBU IH SCH (09:45)
[2020-02-12] MEDS ORDERED: ENOXAPARIN SODIUM 40 MG/0.4 ML SYRG SC SCH (10:00)
[2020-02-12] MEDS ORDERED: POLYETHYLENE GLYCOL 3350 17 GM PACKET PO PRN (10:11)
[2020-02-12] MEDS ORDERED: ACETAMINOPHEN 325 MG TABLET PO PRN (10:11)
[2020-02-12] MEDS ORDERED: MECLIZINE HCL 25 MG TABLET PO PRN (10:11)
[2020-02-12] MEDS ORDERED: [UNRECOGNIZED DRUG - OTHER] TP SCH (10:15)
[2020-02-12] MEDS ORDERED: amLODIPine BESYLATE 10 MG TABLET PO SCH (10:15)
[2020-02-12] MEDS ORDERED: LISINOPRIL 40 MG TABLET PO SCH (10:30)
[2020-02-12] MEDS ORDERED: PRAZOSIN HCL 5 MG CAPSULE PO SCH (10:30)
[2020-02-12] MEDS ORDERED: METOPROLOL SUCCINATE 100 MG TABLET.SA PO SCH (10:30)
[2020-02-12] MEDS: IPRATROPIUM/ALBUTEROL SULFATE 120 PUFF INHALER IH SCH ×2 (12:37→16:13)
[2020-02-12] MEDS ORDERED: LORazepam 1 MG TABLET PO PRN (12:40)
[2020-02-12] MEDS ORDERED: GABAPENTIN 100 MG CAPSULE PO SCH (13:00)
[2020-02-12] MEDS ORDERED: hydrALAZINE HCL 50 MG TABLET PO SCH (13:00)
[2020-02-12] MEDS ORDERED: BACLOFEN 10 MG TABLET PO SCH (13:00)
--- NOTE | 2020-02-12 13:53 | HPDIS ---
Chief Complaint - Chief Complaint Date of Service: 02/12/20 Time of Service: 09:00 Chief Complaint: chest pain History of Present Illness: Pavel Licona is a 54-year-old black female who was awakened during the night with right-sided chest pain. It did not radiate, was not associated with increased shortness of breath, no diaphoresis, no nausea, no lightheadedness. The chest discomfort that awakened her was a pressure sensation in the right side of her chest. She thought she might be having a heart attack and so she came to the hospital. Initial troponin and EKG did not show any evidence of acute myocardial injury. The EKG was done twice both times showing an old anteroseptal FL and interventricular conduction delay. The initial EKG showed first-degree AV block and the second 1 showed that was normal. Neither of the EKGs show any new acute changes supportive of myocardial injury. Serial troponins were done 3 times all of which were in normal reference range. She was admitted about 4:00 this morning. I saw her about 9:00 this morning and she is symptom-free. She is having increased difficulty with breathing because of her asthma and because she is a "PUI" patient she cannot use nebulizer treatments. We are trying Combivent in and MDI. She is also quite anxious and so I am allowing her some lorazepam. I will send her home with a prescription for that. She has had no further chest discomfort since admission. She has chronic asthma so she is chronically dyspneic especially when she cannot get her neb treatments. She has a complete right hemiparesis from an old left hemispheric CVA of the MCA. She will be discharged to go back home and resume her usual respiratory therapy treatments. I will do a virtual visit with her in 2 weeks. Medical History (Last Reviewed 02/12/20 @ 04:29 by Jose D Millan RN) Dizziness (Chronic) Hemiparesis affecting right side as late effect of cerebrovascular accident (Chronic) Impacted cerumen of both ears (Chronic) Acute loss of vision (Acute) Hyperlipidemia (Chronic) COPD (chronic obstructive pulmonary disease) (Chronic) Paralysis due to acute cerebrovascular accident (CVA) (Chronic) Onset Date: ~2014 right side Hypertension (Chronic) Onset Date: Unknown Stroke (Chronic) Onset Date: ~2014 History of echocardiogram Onset Date: ~07/2017 EF 60% Surgical History: Surgical History (Last Reviewed 02/12/20 @ 04:29 by Jose D Millan RN) History of gastrostomy tube placement Onset Date: ~2014 placed after her stroke removed in 06/2016 Family History: Family History (Last Reviewed 02/12/20 @ 04:29 by Jose D Millan RN) Other Family history non-contributory Social History: (Last Reviewed 02/12/20 @ 04:29 by Jose D Millan RN) Tobacco: Smoking Status: Never smoker Alcohol: alcohol intake: never Substance Use: substance use type: does not use Review Of Systems (GEN) - Review of Systems Generalized/Overall Review: Present: Weakness, Malaise EENTM: Present: No Symptoms Reported Respiratory: Present: Cough, Shortness of Breath, Wheezing Cardiac: Present: Chest Pain, Edema. Absent: Palpitations, Syncope Abdominal: Present: No Symptoms Reported Genitourinary: Present: No Symptoms Reported Musculoskeletal: Present: No Symptoms Reported Neurological: Present: Emotional Problems - Anxiety, Pre-existing Deficit - Total right hemiparesis Skin: Present: No Symptoms Reported Endocrine: Present: No Symptoms Reported Immunizations: IMMUNIZATION HX Immunizations Up to Date No History of Influenza Vaccine More Information Required Hx Pneumococcal Vaccination No Allergies/Adverse Reactions: Allergies Allergy/AdvReac Type Severity Reaction Status Date / Time No Known Allergies Allergy Verified 02/12/20 04:30 Home Medications: HOME MEDICATIONS aspirin 81 mg tablet,delayed release 81 mg PO DAILY 11/09/18 [Last Taken Unknown] Albuterol Sulfate [Albuterol Sulfate 2.5 MG/0.5ML] 2.5 mg INHALATION Q6H #100 vial.neb 01/17/19 [Last Taken Unknown] Durable Medical Equipment See Dose Instructions .ROUTE .MEDSUPPLY #1 ea 01/24/19 [Last Taken Unknown] Durable Medical Equipment See Dose Instructions .ROUTE .MEDSUPPLY #1 ea 01/24/19 [Last Taken Unknown] diaper,brief,adult,disposable See Dose Instructions .ROUTE .MEDSUPPLY #40 ea 01/24/19 [Last Taken Unknown] electric hospital bed 0 .ROUTE .MEDSUPPLY #1 ea 01/24/19 [Last Taken Unknown] ferrous sulfate 325 mg (65 mg iron) tablet 325 mg PO DAILY #100 tab 02/28/19 [Last Taken Unknown] Nebulizer 0 .ROUTE .MEDSUPPLY #1 ea 03/30/19 [Last Taken Unknown] Acetaminophen [Tylenol] 650 mg PO Q6H PRN 08/03/19 [Last Taken Unknown] Ipratropium [place] [Atrovent] 1.25 ml INHALATION Q6H PRN 08/03/19 [Last Taken Unknown] Polyethylene Glycol 3350 [Miralax] 17 gm PO DAILY PRN 08/03/19 [Last Taken Unknown] prazosin 5 mg capsule 5 mg PO DAILY #90 cap 10/05/19 [Last Taken Unknown] albuterol sulfate 90 mcg/actuation aerosol inhaler See Rx Instructions .ROUTE .COMPLEX #18 gram 11/24/19 [Last Taken Unknown] amlodipine 10 mg tablet See Rx Instructions .ROUTE .COMPLEX #30 tablet 11/24/19 [Last Taken Unknown] baclofen 10 mg tablet See Rx Instructions .ROUTE .COMPLEX #90 tablet 11/24/19 [Last Taken Unknown] hydralazine 50 mg tablet 50 mg PO TID #90 tab 11/24/19 [Last Taken Unknown] lisinopril 40 mg tablet See Rx Instructions .ROUTE .COMPLEX #30 tablet 11/24/19 [Last Taken Unknown] metoprolol succinate 100 mg tablet,extended release 24 hr See Rx Instructions .ROUTE .COMPLEX #30 tablet 11/24/19 [Last Taken Unknown] atorvastatin 80 mg tablet 80 mg PO DAILY #30 tab 01/09/20 [Last Taken Unknown] Durable Medical Equipment See Dose Instructions .ROUTE .MEDSUPPLY #1 ea 01/12/20 [Last Taken Unknown] gabapentin 100 mg capsule 100 mg PO TID #90 cap 01/12/20 [Last Taken Unknown] meclizine 25 mg tablet 25 mg PO TID PRN #30 tab 01/12/20 [Last Taken Unknown] Albuterol Sulfate [Ventolin Hfa] 1 - 2 puff IH Q4H PRN inhaler 02/12/20 [Last Taken Unknown] Ipratropium/Albuterol Sulfate [Combivent Respimat 20-100 mcg] 2 puff INHALATION Q4HRT #1 inhaler 02/12/20 [Last Taken Unknown] LORazepam [Ativan] 1 mg PO Q8H PRN #30 tab 02/12/20 [Last Taken Unknown] Exam - Exam Vital Signs: Vital Signs - Last Taken Temp 36.9 C 02/12/20 12:47 Pulse 95 02/12/20 12:47 Resp 18 02/12/20 12:47 BP 158/103 H 02/12/20 12:47 Pulse Ox 94 02/12/20 12:47 Constitutional: Present: Alert, Oriented x3, Cooperative, Well developed, Well nourished, Mild distress ENT Exam: Present: normal ENT inspection, hearing grossly normal, pharynx normal, TMs normal Eye Exam: bilateral eye: normal inspection, PERRL, EOMI Neck: Present: non-tender, full range of motion, supple, normal inspection Back Exam: Present: normal inspection, no CVA tenderness, no vertebral tenderness Breasts: Present: Exam deferred Respiratory: Present: rhonchi, wheezing, expiration (prolonged). Absent: accessory muscle use, crackles, rales Cardiovascular/Chest: Present: normal peripheral pulses, regular rate, rhythm, chest tender - Over the right pectoral region Peripheral Pulses: carotid (R): 2+, carotid (L): 2+, radial (R): 2+, radial (L): 2+ Abdomen: Present: Normal bowel sounds, soft, nontender, nondistended, no rebound tenderness, no hepatospenomegaly, no masses, obese /Rectal: Present: Exam deferred Extremity: Present: other - Right hemiparesis. Good range of motion of the left upper extremity at fair of the left lower extremity. Lymphatic: Present: no adenopathy Neurologic: Present: alert, other - Anxious affect, abnormal speech. Absent: normal mood/affect - Total right hemiparesis due to previous left CVA Appearance: Present: appropriate appearance, appropriate insight, neat, no memory impairment Eye contact: Present: cooperative, good eye contact Thoughts: Present: normal thought pattern, no apparent hallucination Diagnostic Studies: Abnormal Lab Results 02/12/20 02/12/20 Range/Units 00:40 00:40 RBC 5.63 H (4.2-5.4) M/mm3 Hgb 11.8 L (12.5-16.0) gm/dL MCV 71.2 L (78-100) fl MCH 21.0 L (27-31) pg MCHC 29.4 L (32-36) g/dl RDW 24.7 H (11.5-14.0) % Plt Count 132 L (150-450) K/mm3 Eosinophils % 15.8 H (0.0-3.0) % Basophils % 1.2 H (0.0-1.0) % Lymphocytes # 1.24 L (1.5-3.5) k/mm3 Sodium 143 H (132-142) mmol/L Plasma Sodium 143 H (130-142) mmol/L ALT 11 L (19-67) U/L Albumin 3.3 L (3.4-5.0) gm/dl Laboratory Results WBC 4.3 K/mm3 (4.0-10.5) 02/12/20 00:40 RBC 5.63 M/mm3 (4.2-5.4) H 02/12/20 00:40 Hgb 11.8 gm/dL (12.5-16.0) L 02/12/20 00:40 Hct 40.1 % (37.0-47.0) 02/12/20 00:40 MCV 71.2 fl (78-100) L 02/12/20 00:40 MCH 21.0 pg (27-31) L 02/12/20 00:40 MCHC 29.4 g/dl (32-36) L 02/12/20 00:40 RDW 24.7 % (11.5-14.0) H 02/12/20 00:40 Plt Count 132 K/mm3 (150-450) L 02/12/20 00:40 Immature Gran % (Auto) 0.20 % (0.001-0.429) 02/12/20 00:40 Immature Gran # (Auto) 0.01 K/mm3 (0.000-0.0310) 02/12/20 00:40 Neutrophils % 48.9 % (42-75.0) 02/12/20 00:40 Lymphocytes % 28.8 % (20-51) 02/12/20 00:40 Monocytes % 5.1 % (0.0-9) 02/12/20 00:40 Eosinophils % 15.8 % (0.0-3.0) H 02/12/20 00:40 Basophils % 1.2 % (0.0-1.0) H 02/12/20 00:40 Nucleated RBC % 0.0 k/mm3 (0-1) 02/12/20 00:40 Neutrophils # 2.1 K/mm3 (1.3-6.0) 02/12/20 00:40 Lymphocytes # 1.24 k/mm3 (1.5-3.5) L 02/12/20 00:40 Monocytes # 0.2 k/mm3 (0.0-1.0) 02/12/20 00:40 Eosinophils # 0.7 k/mm3 (0.0-0.7) 02/12/20 00:40 Absolute Basophils 0.1 k/mm3 (0.0-0.1) 02/12/20 00:40 Sodium 143 mmol/L (132-142) H 02/12/20 00:40 Plasma Sodium 143 mmol/L (130-142) H 02/12/20 00:40 Potassium 3.8 mmol/L (3.4-4.6) 02/12/20 00:40 Chloride 105 mmol/L (97-106) 02/12/20 00:40 Carbon Dioxide 29.0 mmol/L (24-32.6) 02/12/20 00:40 Anion Gap 12.8 mmol/L (6.8-13.8) 02/12/20 00:40 BUN 12 mg/dL (3-23) D 02/12/20 00:40 Creatinine 0.90 mg/dL (0.4-1.4) 02/12/20 00:40 Est GFR (Non-Af Amer) 83 mL/min (60-130) D 02/12/20 00:40 BUN/Creatinine Ratio 13.3 (9.0-21.6) 02/12/20 00:40 Random Glucose 85 mg/dL (70-110) 02/12/20 00:40 Calcium 8.6 mg/dL (7.9-10.9) 02/12/20 00:40 Calcium Adj for Albumin 8.8 mg/dL (8.4-10.2) 02/12/20 00:40 Total Bilirubin 0.3 mg/dL (0.0-1.1) 02/12/20 00:40 AST 17 U/L (0-48) 02/12/20 00:40 ALT 11 U/L (19-67) L 02/12/20 00:40 Alkaline Phosphatase 84 U/L (50-170) 02/12/20 00:40 Troponin I 0.031 ng/mL (0.00-0.10) 02/12/20 08:59 B-Natriuretic Peptide 84 pg/mL (5-205) 02/12/20 00:40 Total Protein 8.0 gm/dL (6.2-8.2) 02/12/20 00:40 Albumin 3.3 gm/dl (3.4-5.0) L 02/12/20 00:40 Assessment/Plan - Narrative Narrative: 1. Discharged home to continue her current medications 2. Warm moist packs to the right upper chest 30 minutes twice daily until soreness is gone 3. Set up a virtual visit for 2 weeks from now. - Assessment/Plan (1) Chest pain, rule out acute myocardial infarction Problem: Ruled-out (2) Person under investigation for COVID-19 Problem: Acute (3) Hemiparesis affecting right side as late effect of cerebrovascular accident Problem: Chronic (4) Chronic asthmatic bronchitis Problem: Chronic (1) Chest pain, rule out acute myocardial infarction Problem: Resolved (2) Person under investigation for COVID-19 Problem: Acute (3) Hemiparesis affecting right side as late effect of cerebrovascular accident Problem: Chronic (4) Chronic asthmatic bronchitis Problem: Acute Date of Discharge:: 02/12/20 Hospital Course: Pavel Licona is a 54-year-old black female who was admitted at 4:00 this morning through the emergency room. She was awakened during the night having right-sided chest pain that felt like a heavy pressure over the right upper chest wall. It was not involving the left side of the chest. It did not radiate, was not associated with dyspnea, lightheadedness, nausea, or diaphoresis. She has had's serial troponins x3 in the hospital and they have all been in normal reference range. 2 EKGs have been done both showing an old anteroseptal FL with interventricular conduction delay. The initial EKG did show a mild first-degree AV block and the second EKG had returned to normal. There is no evidence of any acute myocardial injury on the EKG. This morning she is alert conversant and not having any chest discomfort complaints. She is reassured that this was not a cardiac event. She is having increased problems with her asthma while here and because she is in the negative pressure room 125 she cannot have nebulizer treatments. Or trying her on Combivent HFA but she will do better with her nebulizer treatments as she always has. Her chest x-ray was normal. Lab work is normal except for 15% eosinophilia for which I am asking for pathologist review of peripheral smear. Her COVID 19 test is not back yet but she can be discharged to home nonetheless. Procedures Performed: none Results and Findings: Lab Pending Results 02/12/20 00:40: WBC 4.3, RBC 5.63 H, Hgb 11.8 L, Hct 40.1, MCV 71.2 L, MCH 21.0 L, MCHC 29.4 L, RDW 24.7 H, Plt Count 132 L, Immature Gran % (Auto) 0.20, Immature Gran # (Auto) 0.01, Neutrophils % 48.9, Lymphocytes % 28.8, Monocytes % 5.1, Eosinophils % 15.8 H, Basophils % 1.2 H, Nucleated RBC % 0.0, Neutrophils # 2.1, Lymphocytes # 1.24 L, Monocytes # 0.2, Eosinophils # 0.7, Absolute Basophils 0.1 02/12/20 00:40: Sodium 143 H, Plasma Sodium 143 H, Potassium 3.8, Chloride 105, Carbon Dioxide 29.0, Anion Gap 12.8, BUN 12 D, Creatinine 0.90, Est GFR (Non-Af Amer) 83 D, BUN/Creatinine Ratio 13.3, Random Glucose 85, Calcium 8.6, Calcium Adj for Albumin 8.8, Total Bilirubin 0.3, AST 17, ALT 11 L, Alkaline Phosphatase 84, Troponin I 0.020, Total Protein 8.0, Albumin 3.3 L 02/12/20 00:40: B-Natriuretic Peptide 84 02/12/20 02:35: Troponin I 0.035 02/12/20 08:59: Troponin I 0.031 Discharge Location: Home Disposition: Home self-care Condition: Stable Face to Face Encounter completed per CMS Guidelines: No Discharge Activity: Activity as tolerated Discharge Diet: Resume usual diet Additional Patient Instructions (free text): Set up a virtual visit with me in 2 weeks Warm moist packs to the right anterior chest wall 30 minutes twice daily until soreness is gone Complete Home Medications List: Complete Home Medication List: aspirin 81 mg tablet,delayed release 81 mg PO DAILY 11/09/18 Albuterol Sulfate [Albuterol Sulfate 2.5 MG/0.5ML] 2.5 mg INHALATION Q6H #100 vial.neb 01/17/19 Durable Medical Equipment See Dose Instructions .ROUTE .MEDSUPPLY #1 ea 01/24/19 Durable Medical Equipment See Dose Instructions .ROUTE .MEDSUPPLY #1 ea 01/24/19 diaper,brief,adult,disposable See Dose Instructions .ROUTE .MEDSUPPLY #40 ea 01/24/19 electric hospital bed 0 .ROUTE .MEDSUPPLY #1 ea 01/24/19 ferrous sulfate 325 mg (65 mg iron) tablet 325 mg PO DAILY #100 tab 02/28/19 Nebulizer 0 .ROUTE .MEDSUPPLY #1 ea 03/30/19 Acetaminophen [Tylenol] 650 mg PO Q6H PRN 08/03/19 Ipratropium [place] [Atrovent] 1.25 ml INHALATION Q6H PRN 08/03/19 Polyethylene Glycol 3350 [Miralax] 17 gm PO DAILY PRN 08/03/19 prazosin 5 mg capsule 5 mg PO DAILY #90 cap 10/05/19 albuterol sulfate 90 mcg/actuation aerosol inhaler See Rx Instructions .ROUTE .COMPLEX #18 gram 11/24/19 amlodipine 10 mg tablet See Rx Instructions .ROUTE .COMPLEX #30 tablet 11/24/19 baclofen 10 mg tablet See Rx Instructions .ROUTE .COMPLEX #90 tablet 11/24/19 hydralazine 50 mg tablet 50 mg PO TID #90 tab 11/24/19 lisinopril 40 mg tablet See Rx Instructions .ROUTE .COMPLEX #30 tablet 11/24/19 metoprolol succinate 100 mg tablet,extended release 24 hr See Rx Instructions .ROUTE .COMPLEX #30 tablet 11/24/19 atorvastatin 80 mg tablet 80 mg PO DAILY #30 tab 01/09/20 Durable Medical Equipment See Dose Instructions .ROUTE .MEDSUPPLY #1 ea 01/12/20 gabapentin 100 mg capsule 100 mg PO TID #90 cap 01/12/20 meclizine 25 mg tablet 25 mg PO TID PRN #30 tab 01/12/20 Albuterol Sulfate [Ventolin Hfa] 1 - 2 puff IH Q4H PRN inhaler 02/12/20 Ipratropium/Albuterol Sulfate [Combivent Respimat 20-100 mcg] 2 puff INHALATION Q4HRT #1 inhaler 02/12/20 LORazepam [Ativan] 1 mg PO Q8H PRN #30 tab 02/12/20 Forms: Patient Portal Registration
[2020-02-12 18:13] VITALS: BP 133/90
[2020-02-13] MEDS ORDERED: ROSUVASTATIN CALCIUM 20 MG TABLET PO SCH (09:00)
[2020-02-13] MEDS ORDERED: FERROUS SULFATE 325 MG TABLET PO SCH (09:00)
[2020-02-13] MEDS ORDERED: ASPIRIN 81 MG TABLET.DR PO SCH (09:00)
== END 2020-02-12 17:30 | disposition home or self-care (01) ==
LOC: ER 00:01 → MS 00:01
PROVIDERS: ADMIT Family Medicine; ATTEND Family Medicine
DX: J45.901 Unspecified asthma with (acute) exacerbation; F41.9 Anxiety disorder, unspecified; R07.9 Chest pain, unspecified; I10 Essential (primary) hypertension; I69.351 Hemiplegia and hemiparesis following cerebral infarction affecting right dominant side; J44.1 Chronic obstructive pulmonary disease with (acute) exacerbation; Z03.818 Encounter for observation for suspected exposure to other biological agents ruled out
CPT/HCPCS: 36415; 71010; 71045; 80053; 83519; 83880; 84484; 85025; 85045; 88321; 93005; 99285; G0378